=== PATIENT | male | born 1955 | race Two or more races ===

== ENCOUNTER 2017-09-11 21:59 | Emergency (ER) | payer OTHER ==
[~2017-09-11] VITALS: Ht 144.8 cm; Wt 67.1 kg
[2017-09-11 22:18] VITALS: BP 170/91
[2017-09-11] MEDS ORDERED: Norco 5mg/325mg tab ORAL ONE (22:30)
[2017-09-11] MEDS ORDERED: Fluorescein Strips LEFT EYE ONE (22:30)
[2017-09-11 22:34] VITALS: BP 0/0
[2017-09-11] MEDS ORDERED: POLYTRIM EYE DR10 M1 OP (22:35)
[2017-09-11] MEDS ORDERED: IBUPROFEN600 MG ORAL (22:35)
--- NOTE | 2017-09-11 22:35 | Emergency Room Report ---
History of Present Illness General Chief Complaint: Eye Problems Source: Patient Present Illness HPI This is a 62-year-old male who presents with chief complaint left eye injury. 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 This occurred just prior to arrival. He complaining of some pain over that area. Blurry vision and tearing. Pain is 7 out of 10. Worse with lights. Denies any other injury. Did not pass out. Allergies: Coded Allergies: No Known Allergies (Unverified , 09/11/17) Patient History Past Medical History: see triage record, old chart reviewed Past Surgical History: other Pertinent Family History: none Social History: Denies: smoking Immunizations: other Reviewed Nursing Documentation: PMH: Agreed; PSxH: Agreed Nursing Documentation-PMH Past Medical History: No Stated History Review of Systems Eye: Reports: eye pain, tearing; Denies: blurred vision ENT: Denies: ear pain, nose congestion, throat swelling Respiratory: Denies: cough, shortness of breath Cardiovascular: Denies: chest pain, palpitations Gastrointestinal: Denies: abdominal pain, diarrhea, nausea, vomiting Musculoskeletal: Denies: back pain, joint pain Skin: Denies: rash Neurological: Denies: headache, numbness Endocrine: Denies: increased thirst, increased urine Hematologic/Lymphatic: Denies: easy bruising All Other Systems: negative except mentioned in HPI Physical Exam Vital Signs Date Time Temp Pulse Resp B/P (MAP) Pulse Ox O2 Delivery O2 Flow Rate FiO2 09/11/17 22:05 97.9 60 16 170/91 98 Room Air 97.9 vitals with high blood pressure Sp02 EP Interpretation: reviewed, normal General Appearance: well appearing, no apparent distress, alert Head: normocephalic, atraumatic Eyes: left eye other - Left eye with a cornea abrasion at 5 and 7 o'clock position. Negative Anibal sign. No globe rupture.; bilateral eye PERRL, bilateral eye EOMI ENT: hearing grossly normal, normal pharynx Neck: full range of motion, supple, no meningismus Respiratory: chest non-tender, lungs clear, normal breath sounds Cardiovascular #1: regular rate, rhythm, no murmur Gastrointestinal: normal bowel sounds, non tender, no mass, no organomegaly, no bruit, non-distended Musculoskeletal: back normal, gait/station normal, normal range of motion Psychiatric: mood/affect normal Skin: warm/dry Medical Decision Making Diagnostic Impression: Primary Impression: Corneal abrasion, left Qualified Codes: S05.02XA - Injury of conjunctiva and corneal abrasion without foreign body, left eye, initial encounter ER Course Patient presents with cornea abrasion. No evidence of globe rupture. We'll discharge home with eye patch for comfort. We'll refer to eye doctor from [facility]. Last Vital Signs Date Time Temp Pulse Resp B/P (MAP) Pulse Ox O2 Delivery O2 Flow Rate FiO2 09/11/17 22:05 97.9 60 16 170/91 98 Room Air 97.9 Status: improved Disposition: HOME, SELF-CARE Condition: Stable Scripts Polymyxin B Sulf/Trimethoprim (POLYTRIM EYE DROPS) 10 Ml Drops 4 DROP OP TID, #10 ML Prov: MOE MEDINA M.D. 09/11/17 Ibuprofen* (MOTRIN*) 600 Mg Tablet 600 MG ORAL THREE TIMES A DAY, #30 TAB 0 Refills Prov: MOE MEDINA M.D. 09/11/17 Referrals: NOT CHOSEN [facility]/,REFERRING (PCP) Additional Instructions: Follow-up with [facility] doctor for recheck within 2 days. Return if worse. MOE MEDINA M.D. Sep 11, 2017 22:35
== END 2017-09-11 22:34 | disposition home or self-care (01) ==
LOC: EMR 22:23
DX: S05.02XA Injury of conjunctiva and corneal abrasion without foreign body, left eye, initial encounter (principal); W20.8XXA Other cause of strike by thrown, projected or falling object, initial encounter; Y92.512 Supermarket, store or market as the place of occurrence of the external cause; Y99.0 Civilian activity done for income or pay
CPT/HCPCS: 99283